=== PATIENT | female | born 1970 | race Asian ===

== ENCOUNTER 2020-04-18 12:50 | Outpatient (CLI) | payer OTHER | END 2020-04-18 19:23 | disposition home or self-care (01) | LOC: RAD 12:50 | DX: G56.03 Carpal tunnel syndrome, bilateral upper limbs (principal); M13.88 Other specified arthritis, other site; M54.2 Cervicalgia; M79.7 Fibromyalgia; F99 Mental disorder, not otherwise specified; F43.10 Post-traumatic stress disorder, unspecified; H54.7 Unspecified visual loss ==

== ENCOUNTER 2020-08-06 11:13 | Outpatient (CLI) | payer OTHER | END 2020-08-06 22:38 | disposition home or self-care (01) | LOC: RAD 11:13 | PROVIDERS: ATTEND Internal Medicine | DX: R10.2 Pelvic and perineal pain (principal); M25.561 Pain in right knee ==